=== PATIENT | female | born 1945 | race Caucasian/White ===

== ENCOUNTER → 2017-03-12 | Outpatient (CLI) | payer MEDICARE, MEDICAID ==
--- NOTE | 2017-03-12 11:10 | WOMENS IMAGING REPORT ---
EXAM DESCRIPTION: 3D SCREENING MAMMO BILAT COMPLETED DATE/TIME: 03/12/2017 10:32 am REASON FOR STUDY: ROUTINE SCREENING; Z12.31 Z12.31 ENCNTR SCREEN MAMMOGRAM FOR MALIGNANT NEOPLASM O F NATHALY COMPARISON: 2012 TECHNIQUE: Standard craniocaudal and mediolateral oblique views of each breast recorded using digita l acquisition and breast tomosynthesis. LIMITATIONS: None. FINDINGS: No masses, calcifications or architectural distortion. No areas of suspicion. Read with the assistance of CAD. .[facility] - R2 Cenova Version 1.3 .[facility] Imaging - R2 Cenova Version 1.3 .[facility] Imaging - R2 Cenova Version 2.4 .[facility] - R2 Cenova Version 2.4 .[facility] 234 BEDS AT THE [facility] - R2 Engine Service Repairer Version 9.2 IMPRESSION: NORMAL MAMMOGRAM. BIRADS 1. BREAST DENSITY: a. The breasts are almost entirely fatty. BIRAD: 1 NEGATIVE RECOMMENDATION: ROUTINE SCREENING COMMENT: The patient has been notified of the results by letter per SA requirements. Additional no tification policies are in place for contacting patient with suspicious or incomplete findings. Quality ID #[id number]: The [employer] recommends an annual screening mammogram for women aged 40 years or over. This facility utilizes a reminder system to ensure that all patients receive reminder letters, and/or direct phone calls for appointments. This includes reminders for routine scr eening mammograms, diagnostic mammograms, or other Breast Imaging Interventions when appropriate. Th is patient will be placed in the appropriate reminder system. The [employer] (ACR) has developed recommendations for screening MRI of the breast s in certain patient populations, to be used in conjunction with mammography. Breast MRI surveillanc e may be appropriate for women with more than 20% lifetime risk of developing breast cancer as deter mined by genetic testing, significant family history of the disease, or history of mantle radiation f or Hodgkins Disease. ACR Practice Guidelines 2008. DBT Technology DBT is a type of tomographic mammography. With conventional mammography, overlapping breast tissue ma y make lesions difficult to detect, even with good compression. DBT uses an x-ray tube that rotates a round the breast, taking images at different angles. These images are then combined to create thin sl ices of the breast that the radiologist can view as a 3D reconstruction. The [employer] unit can perform full-field digital mammograms (2D imaging); or DBT (3D imaging); or both, in a combination mode that quickly performs both the mammogram and the tomosynthesis scan while the breast is still compressed. PQRS 6045F: Fluoroscopic imaging is not utilized for breast tomosynthesis. TECHNICAL DOCUMENTATION: FINDING NUMBER: (1) ASSESSMENT: (1) JOB ID: [id number] [employer]- All Rights Reserved
== END ==
LOC: WI 10:09
PROVIDERS: ATTEND Physician Assistant
DX: Z12.31 Encounter for screening mammogram for malignant neoplasm of breast (principal)
CPT/HCPCS: 77063; G0202; 77067

== ENCOUNTER 2017-12-05 18:35 | Inpatient (IN) | payer MEDICARE, MEDICAID ==
--- NOTE | 2017-12-05 19:17 | ER Document Report ---
ED Medical Screen (RME) - General Chief Complaint: Altered Mental Status Stated Complaint: ALTERED STATE,CONFUSION Time Seen by Provider: 12/05/17 19:11 TRAVEL OUTSIDE OF THE [place] IN LAST 30 DAYS: No - HPI Notes: 12/05/17 19:17 On chronic antibiotic therapy for infected knee now having altered mental status and feeling "lousy" - Related Data Allergies/Adverse Reactions: Sulfa (Sulfonamide Antibiotics) Allergy (Verified 10/25/11 10:44) Past Medical History - Past Medical History Cardiac Medical History: Reports: Hx Hypercholesterolemia, Hx Hypertension Pulmonary Medical History: Reports: Hx Bronchitis Endocrine Medical History: Reports: Hx Diabetes Mellitus Type 2 Psychiatric Medical History: Reports: Hx Depression Review of Systems - Review of Systems Constitutional: Weakness Physical Exam - Vital signs Vitals: Temp Pulse Resp BP Pulse Ox 98.4 F 70 18 137/70 H 99 12/05/17 18:46 12/05/17 18:46 12/05/17 18:46 12/05/17 18:46 12/05/17 18:46 - Respiratory Respiratory status: No respiratory distress Chest status: Nontender Breath sounds: Normal Chest palpation: Normal Course - Vital Signs Vital signs: Temp Pulse Resp BP Pulse Ox 98.4 F 70 18 137/70 H 99 12/05/17 18:46 12/05/17 18:46 12/05/17 18:46 12/05/17 18:46 12/05/17 18:46
[2017-12-05] MEDS ORDERED: ONDANSETRON HCL INJ/PF 4 MG/2 ML SDV IV ONE (19:18)
[2017-12-05] MEDS ORDERED: NORMAL SALINE 1000 ML 1,000 ML IV ONE ×2 (19:18→22:05)
--- NOTE | 2017-12-05 20:21 | RADIOLOGY REPORT (SQ) ---
EXAM DESCRIPTION: CHEST 2 VIEWS COMPLETED DATE/TIME: 12/05/2017 8:13 pm REASON FOR STUDY: ams COMPARISON: 10/25/2011 EXAM PARAMETERS: NUMBER OF VIEWS: two views TECHNIQUE: Digital Frontal and Lateral radiographic views of the chest acquired. RADIATION DOSE: NA LIMITATIONS: none FINDINGS: LUNGS AND PLEURA: No opacities, masses or pneumothorax. No pleural effusion. MEDIASTINUM AND HILAR STRUCTURES: No masses or contour abnormalities. HEART AND VASCULAR STRUCTURES: Heart normal size. No evidence for failure. BONES: No acute findings. HARDWARE: None in the chest. OTHER: No other significant finding. IMPRESSION: NO ACUTE RADIOGRAPHIC FINDING IN THE CHEST. TECHNICAL DOCUMENTATION: JOB ID: [id number] [employer]- All Rights Reserved Reading location - IP/workstation name: [email or web address]
--- NOTE | 2017-12-05 20:23 | RADIOLOGY REPORT (SQ) ---
EXAM DESCRIPTION: CT HEAD WITHOUT COMPLETED DATE/TIME: 12/05/2017 8:13 pm REASON FOR STUDY: ams COMPARISON: None. TECHNIQUE: Axial images acquired through the brain without intravenous contrast. Images reviewed wi th bone, brain and subdural windows. Additional sagittal and coronal reconstructions were generated. Images stored on PACS. All CT scanners at this facility use dose modulation, iterative reconstruction, and/or weight based d osing when appropriate to reduce radiation dose to as low as reasonably achievable (ALARA). [facility]: Dose Right [facility]: CareDose [facility]: Dose Right [facility]: Teradose 4D [facility]: Gengo RADIATION DOSE: CT Rad equipment meets quality standard of care and radiation dose reduction techniq ues were employed. CTDIvol: 53.2 mGy. DLP: 1070 mGy-cm. mGy. LIMITATIONS: None. FINDINGS: VENTRICLES: Normal size and contour. CEREBRUM: No masses. No hemorrhage. No midline shift. No evidence for acute infarction. Normal gra y/white matter differentiation. No areas of low density in the white matter. CEREBELLUM: No masses. No hemorrhage. No alteration of density. No evidence for acute infarction. EXTRAAXIAL SPACES: No fluid collections. No masses. ORBITS AND GLOBE: No intra- or extraconal masses. Normal contour of globe without masses. CALVARIUM: No fracture. PARANASAL SINUSES: No fluid or mucosal thickening. SOFT TISSUES: No mass or hematoma. OTHER: No other significant finding. IMPRESSION: NORMAL BRAIN CT WITHOUT CONTRAST. EVIDENCE OF ACUTE STROKE: NO. COMMENT: Quality ID # [id number]: Final reports with documentation of one or more dose reduction techniques (e.g., Automated exposure control, adjustment of the mA and/or kV according to patient size, use of iterative reconstruction technique) TECHNICAL DOCUMENTATION: JOB ID: [id number] [employer]- All Rights Reserved Reading location - IP/workstation name: [email or web address]
--- NOTE | 2017-12-05 20:23 | ER Document Report ---
ED General <EVON WEBB - Last Filed: 12/05/17 22:21> - General Mode of Arrival: Ambulatory Information source: Patient, Relative TRAVEL OUTSIDE OF THE U.S. IN LAST 30 DAYS: No <DARLENE DE LEON - Last Filed: 12/10/17 22:02> - General Chief Complaint: Altered Mental Status Stated Complaint: ALTERED STATE,CONFUSION Time Seen by Provider: 12/05/17 19:11 Notes: Patient is a 71 year old female on Cefepime chronically for an infected left knee prosthesis with a history of diabetes type 2 and hypertension presents to the emergency department complaining of general malaise onset 3 days ago and altered mental status onset yesterday. Patient states she has been feeling lousy and states starting yesterday she has been confused. Patient states she has associated symptoms of nausea and decreased appetite. Daughter at bedside states she believes the patient has been drinking enough fluids but is unsure. Patient denies any fevers. Patient had a left total knee replacement on October 13, 2017, an hematoma washed out on October 24, 2017 and was started on Cefepime on October 26 2017. Patient's PCP is Dr. Morataya. Patient goes to [facility] in [place] in regards to her orthopedic surgery. (DARLENE DE LEON) - Related Data Allergies/Adverse Reactions: Sulfa (Sulfonamide Antibiotics) Allergy (Verified 12/05/17 19:20) Past Medical History - General Information source: Patient - Social History Smoking Status: Former Smoker Chew tobacco use (# tins/day): No Frequency of alcohol use: None Drug Abuse: None Family History: Reviewed & Not Pertinent Patient has suicidal ideation: No Patient has homicidal ideation: No - Past Medical History Cardiac Medical History: Reports: Hx Hypercholesterolemia, Hx Hypertension Pulmonary Medical History: Reports: Hx Bronchitis Endocrine Medical History: Reports: Hx Diabetes Mellitus Type 2 Psychiatric Medical History: Reports: Hx Depression <DARLENE DE LEON - Last Filed: 12/10/17 22:02> Review of Systems - Review of Systems Constitutional: See HPI, Malaise EENT: No symptoms reported Cardiovascular: No symptoms reported Respiratory: No symptoms reported Gastrointestinal: See HPI, Nausea, Poor appetite Genitourinary: No symptoms reported Female Genitourinary: No symptoms reported Musculoskeletal: No symptoms reported Skin: No symptoms reported Hematologic/Lymphatic: No symptoms reported Neurological/Psychological: See HPI, Confusion -: Yes All other systems reviewed and negative <MOISESDARLENE DRIVER - Last Filed: 12/10/17 22:02> Physical Exam - General General appearance: Appears well, Alert In distress: None - HEENT Head: Normocephalic, Atraumatic Eyes: Normal Conjunctiva: Normal Extraocular movements intact: Yes Pupils: PERRL Mucous membranes: Dry Neck: Normal. No: Carotid bruit - Respiratory Respiratory status: No respiratory distress Chest status: Nontender Breath sounds: Normal Chest palpation: Normal - Cardiovascular Rhythm: Regular Heart sounds: Normal auscultation - Abdominal Inspection: Obese Distension: No distension Bowel sounds: Normal Tenderness: Nontender Organomegaly: No organomegaly - Back Back: Normal - Extremities General upper extremity: Normal inspection General lower extremity: Normal inspection, Other - Support stocking BLE - Neurological Neuro grossly intact: Yes Cognition: Normal Orientation: AAOx4 Khai Coma Scale Eye Opening: Spontaneous [place] Coma Scale Verbal: Oriented Khai Coma Scale Motor: Obeys Commands [place] Coma Scale Total: 15 - Psychological Associated symptoms: Normal affect, Normal mood - Skin Skin Temperature: Warm Skin Moisture: Dry Skin Color: Normal <MOISESKARENPHONG - Last Filed: 12/10/17 22:02> - Vital signs Vitals: Temp Pulse Resp BP Pulse Ox 98.4 F 70 18 137/70 H 99 12/05/17 18:46 12/05/17 18:46 12/05/17 18:46 12/05/17 18:46 12/05/17 18:46 Course - Laboratory Result Diagrams: 12/05/17 20:30 12/05/17 20:30 - Diagnostic Test Radiology reviewed: Image reviewed, Reports reviewed - EKG Interpretation by Or EKG shows normal: Sinus rhythm, [place], Intervals, QRS Complexes, ST-T Waves Rate: Normal - 59 Rhythm: NSR - Consults Dr. Morataya Consulted provider: will see as inpatient <EVON WEBB - Last Filed: 12/05/17 22:21> - Laboratory Result Diagrams: 12/06/17 05:45 12/06/17 16:45 <MOISESDARLENE FRAUSTO - Last Filed: 12/10/17 22:02> - Vital Signs Vital signs: Temp Pulse Resp BP Pulse Ox 98.0 F 59 L 16 137/61 H 97 12/06/17 20:06 12/06/17 20:06 12/06/17 20:06 12/06/17 20:06 12/06/17 20:06 - Laboratory Laboratory results interpreted by me: 12/05/17 12/05/17 12/05/17 20:30 20:30 20:30 RBC 3.52 L Hgb 10.4 L Hct 30.5 L RDW 15.2 H Plt Count 113 L PT 15.6 H VBG pCO2 VBG HCO3 Carbon Dioxide 17 L Anion Gap 20 H BUN 66 H Creatinine 3.83 H Est GFR ( Amer) 14 L Est GFR (Non-Af Amer) 12 L Glucose 123 H Direct Bilirubin 0.5 H Urine Protein Urine Blood 12/05/17 12/05/17 20:30 20:40 RBC Hgb Hct RDW Plt Count PT VBG pCO2 32.7 L VBG HCO3 19.1 L Carbon Dioxide Anion Gap BUN Creatinine Est GFR ( Amer) Est GFR (Non-Af Amer) Glucose Direct Bilirubin Urine Protein 30 H Urine Blood MODERATE H Discharge - Discharge Admitting Provider: [facility] Admitted: Telemetry <EVON WEBB - Last Filed: 12/05/17 22:21> <DARLENE DE LEON - Last Filed: 12/10/17 22:02> - Discharge Clinical Impression: Dehydration Acute renal failure Qualifiers: Acute renal failure type: unspecified Qualified Code(s): N17.9 - Acute kidney failure, unspecified Infection of prosthetic left knee joint Qualifiers: Encounter type: initial encounter Qualified Code(s): T84.54XA - Infection and inflammatory reaction due to internal left knee prosthesis, initial encounter Condition: Stable Disposition: ADMITTED INPATIENT Scribe Attestation: 12/05/17 21:28 I personally performed the services described in the documentation, reviewed and edited the documentation which was dictated to the scribe in my presence, and it accurately records my words and actions. (EVON WEBB) Scribe Documentation - Scribe Written by Scribe:: Martine Dale, 12/05/2017 20:26 acting as scribe for :: Yehuda <DARLENE DE LEON - Last Filed: 12/10/17 22:02>
[2017-12-05 20:47] LABS: ABSOLUTE BASOPHILS # (AUTO) 0.1 10^3/uL (0.0-0.2); ABSOLUTE EOSINOPHILS # (AUTO) 0.2 10^3/uL (0.0-0.6); ABSOLUTE LYMPHOCYTES (AUTO) 1.3 10^3/uL (0.5-4.7); ABSOLUTE MONOCYTES (AUTO) 0.8 10^3/uL (0.1-1.4); ABSOLUTE NEUT (AUTO) 5.1 10^3/uL (1.7-8.2); BASOPHILS % (AUTO) 0.7 % (0-2); EOSINOPHILS % (AUTO) 2.1 % (0-6); HEMATOCRIT 30.5 % (36.0-47.0); HEMOGLOBIN 10.4 g/dL (12.0-15.5); LYMPHOCYTES % (AUTO) 17.4 % (13-45); MEAN CORPUSCULAR HEMOGLOBIN 29.7 pg (27.0-33.4); MEAN CORPUSCULAR HGB CONC 34.2 g/dL (32.0-36.0); MEAN CORPUSCULAR VOLUME 87 fl (80-97); MONOCYTES % (AUTO) 10.6 % (3-13); PLATELET COUNT 113 10^3/uL (150-450); RED BLOOD COUNT 3.52 10^6/uL (3.72-5.28); RED CELL DISTRIBUTION WIDTH 15.2 % (11.5-14.0); SEGMENTED NEUTROPHILS % (AUTO) 69.2 % (42-78); TOTAL CELLS COUNTED % (AUTO) 100 %; WHITE BLOOD COUNT 7.3 10^3/uL (4.0-10.5)
[2017-12-05 20:49] LABS: VENOUS BLOOD BASE EXCESS -5.1 mmol/L; VENOUS BLOOD HCO3 19.1 mmol/L (20-32); VENOUS BLOOD PCO2 32.7 mmHg (35-63); VENOUS BLOOD PH 7.38 (7.30-7.42)
[2017-12-05 20:51] LABS: INTERNATIONAL RATION (INR) 1.18; PROTHROMBIN TIME 15.6 SEC (11.4-15.4)
[2017-12-05 21:12] LABS: ALANINE AMINOTRANSFERASE 28 U/L (9-52); ALBUMIN 3.8 g/dL (3.5-5.0); ALKALINE PHOSPHATASE 78 U/L (38-126); ASPARTATE AMINO TRANSFERASE 20 U/L (14-36); BILIRUBIN,DIRECT 0.5 mg/dL (0.0-0.4); BILIRUBIN,TOTAL 0.5 mg/dL (0.2-1.3); BLOOD UREA NITROGEN 66 mg/dL (7-20); CALCIUM 9.9 mg/dL (8.4-10.2); GLUCOSE 123 mg/dL (75-110); TOTAL PROTEIN 7.2 g/dL (6.3-8.2)
[2017-12-05 21:17] LABS: CARBON DIOXIDE 17 mmol/L (22-30); CHLORIDE 103 mmol/L (98-107); SODIUM 140.2 mmol/L (137-145)
[2017-12-05 21:18] LABS: ANION GAP 20 (5-19)
[2017-12-05 21:18] LABS: APPEARANCE,URINE SLIGHTLY-CLOUDY; BILIRUBIN,URINE NEGATIVE (NEGATIVE); COLOR,URINE YELLOW; GLUCOSE, URINE NEGATIVE (NEGATIVE); KETONES,URINE NEGATIVE (NEGATIVE); LEUKOCYTE ESTERASE,URINE NEGATIVE (NEGATIVE); NITRITE,URINE NEGATIVE (NEGATIVE); PROTEIN,URINE 30 mg/dL (NEGATIVE); URINE SPECIFIC GRAVITY 1.009; UROBILINOGEN,URINE NEGATIVE mg/dL (<2.0)
[2017-12-05] MEDS ORDERED: NORMAL SALINE 1000 ML 1,000 ML IV PRN (22:16)
[2017-12-05] MEDS ORDERED: ACETAMINOPHEN 325 MG TABLET PO PRN (22:16)
[2017-12-05] MEDS ORDERED: OXYCODONE-ACETAMINOPHEN 5-325 MG TABLET PO PRN (22:16)
[2017-12-05] MEDS ORDERED: GLUCAGON,HUMAN RECOMB 1 MG INJ IM PRN (22:21)
[2017-12-05] MEDS ORDERED: DEXTROSE 40% GEL 15 GM TUBE PO PRN ×2 (22:21)
[2017-12-05] MEDS ORDERED: DEXTROSE 50%-WATER 25 GM/50 ML DISP.SYRIN IV PRN ×2 (22:21)
[2017-12-05] MEDS ORDERED: INSULIN LISPRO 100 UNIT/ML 3 ML VIAL SUBCUT PRN (22:21)
[2017-12-06] MEDS ORDERED: HEPARIN SOD (PORCINE) 5,000 UNIT/ML 1 ML SYRINGE SUBCUT SCH (06:00)
[2017-12-06] MEDS: LANSOPRAZOLE 15 MG TAB.RAP.DR PO SCH ×2 (06:03→16:56)
[2017-12-06 06:13] LABS: ALANINE AMINOTRANSFERASE 28 U/L (9-52); ALBUMIN 3.3 g/dL (3.5-5.0); ALKALINE PHOSPHATASE 64 U/L (38-126); ANION GAP 14 (5-19); ASPARTATE AMINO TRANSFERASE 20 U/L (14-36); BILIRUBIN,DIRECT 0.4 mg/dL (0.0-0.4); BILIRUBIN,TOTAL 0.4 mg/dL (0.2-1.3); BLOOD UREA NITROGEN 66 mg/dL (7-20); CARBON DIOXIDE 16 mmol/L (22-30); CHLORIDE 110 mmol/L (98-107); GLUCOSE 112 mg/dL (75-110); POTASSIUM 4.1 mmol/L (3.6-5.0); SODIUM 140.4 mmol/L (137-145); TOTAL PROTEIN 6.4 g/dL (6.3-8.2)
[2017-12-06 06:55] LABS: ABSOLUTE EOSINOPHILS # (AUTO) 0.1 10^3/uL (0.0-0.6); ABSOLUTE MONOCYTES (AUTO) 0.6 10^3/uL (0.1-1.4); ABSOLUTE NEUT (AUTO) 3.5 10^3/uL (1.7-8.2); BASOPHILS % (AUTO) 0.9 % (0-2); EOSINOPHILS % (AUTO) 2.6 % (0-6); HEMATOCRIT 27.7 % (36.0-47.0); HEMOGLOBIN 9.5 g/dL (12.0-15.5); LYMPHOCYTES % (AUTO) 19.3 % (13-45); MEAN CORPUSCULAR HEMOGLOBIN 29.7 pg (27.0-33.4); MEAN CORPUSCULAR HGB CONC 34.4 g/dL (32.0-36.0); MEAN CORPUSCULAR VOLUME 86 fl (80-97); MONOCYTES % (AUTO) 11.3 % (3-13); PLATELET COUNT 78 10^3/uL (150-450); RED BLOOD COUNT 3.21 10^6/uL (3.72-5.28); RED CELL DISTRIBUTION WIDTH 14.7 % (11.5-14.0); SEGMENTED NEUTROPHILS % (AUTO) 65.9 % (42-78); TOTAL CELLS COUNTED % (AUTO) 100 %; WHITE BLOOD COUNT 5.4 10^3/uL (4.0-10.5)
--- NOTE | 2017-12-06 07:26 | EKG REPORT ---
SEVERITY:- NORMAL ECG - SINUS RHYTHM : Confirmed by: Jose English MD 06-Dec-2017 07:26:15
[2017-12-06] MEDS ORDERED: NORMAL SALINE 1000 ML 1,000 ML IV PRN (08:54)
--- NOTE | 2017-12-06 09:44 | PDOC H&P ---
History of Present Illness Admission Date/PCP: 12/05/17 22:30 YESI HARGROVE MD Patient complains of: Weakness and altered mental status History of Present Illness: JENIFER JARA is a 71 year old female This is a 71-year-old female have a recently a left knee arthroplasty was done in [facility] on October 13 And then after patients to have a postop fever and patient underwent for the reopen the prostatic device and sign fluid was sent to the culture and a culture was not very conclusive patients was empirically treated initially with a Cefazolin and put on a vancomycinFor 2 weeks According to the note from the ortho The Gram stain was not conclusive and stop the vancomycin on 10/30 And the start the patient on the cefepime to cover the Pseudomonas and gram-negative and the patient's finished for almost 2 weeks therapy Patients came because of not feeling well not eating well and according to the daughters patient's little confused In the emergency department patient CT head was negative but patients follow acute renal failure Patient's kidney function was completely normal Patient when I saw in the floor patient is alert awake oriented but more weaker compared to the see in office before but denied any chest pain denied any shortness of the breath Patient's denied any abdominal pain but patient's appetite is poor Patient have a PICC line was placed Past Medical History Cardiac Medical History: Reports: Hyperlipidema, Hypertension Pulmonary Medical History: Reports: Bronchitis Endocrine Medical History: Reports: Diabetes Mellitus Type 2 GI Medical History: Reports: Gastroesophageal Reflux Disease Psychiatric Medical History: Reports: Depression Past Surgical History Past Surgical History: Reports: Orthopedic Surgery Social History Smoking Status: Former Smoker Cigarettes Packs Per Day: 1 Number of Years Smokin Last Time Smoked: 1989 Frequency of Alcohol Use: None Hx Recreational Drug Use: No Drugs: None Hx Prescription Drug Abuse: No Family History Family History: Reviewed & Not Pertinent Parental Family History Reviewed: Yes Children Family History Reviewed: Yes Sibling(s) Family History Reviewed.: Yes Medication/Allergy Home Medications: Hydrochlorothiazide [Hydrodiuril 25 mg Tablet] 25 mg PO QAM 10/25/11 Metformin HCl [Glucophage] 1,000 mg PO BID 10/25/11 Simvastatin [Zocor 10 mg Tablet] 5 mg PO QHS 10/25/11 Acetaminophen [Tylenol 325 mg Tablet] 650 mg PO Q8HP PRN 12/06/17 Cefepime HCl [Maxipime] 2 gm IJ 12/06/17 Escitalopram Oxalate [Lexapro 10 mg Tablet] 20 mg PO DAILY 12/06/17 Glimepiride [Amaryl 1 mg Tablet] 1 mg PO BID 12/06/17 Levothyroxine Sodium [Synthroid 0.112 mg Tablet] 0.112 mg PO Q6AM 12/06/17 Losartan Potassium [Cozaar 50 mg Tablet] 50 mg PO DAILY 12/06/17 Sennosides/Docusate Sodium [Docusate Sodium-Senna Tablet] 2 each PO BID Sitagliptin Phosphate [Januvia] 100 mg PO DAILY 12/06/17 Tramadol HCl [Ultram 50 mg Tablet] 50 mg PO Q6HP PRN MDD take with tylenol 12/06 Allergies/Adverse Reactions: Sulfa (Sulfonamide Antibiotics) Allergy (Verified 12/05/17 19:20) Review of Systems Constitutional: PRESENT: anorexia, fatigue, weakness. ABSENT: chills, fever(s) , headache(s), weight gain, weight loss Eyes: ABSENT: visual disturbances Ears: ABSENT: hearing changes Cardiovascular: ABSENT: chest pain, dyspnea on exertion, edema, orthropnea, palpitations Respiratory: ABSENT: cough, hemoptysis Gastrointestinal: ABSENT: abdominal pain, constipation, diarrhea, hematemesis, hematochezia, nausea, vomiting Genitourinary: ABSENT: dysuria, hematuria Musculoskeletal: ABSENT: joint swelling Integumentary: ABSENT: rash, wounds Neurological: PRESENT: confusion. ABSENT: abnormal gait, abnormal speech, dizziness, focal weakness, syncope Psychiatric: ABSENT: anxiety, depression, homidical ideation, suicidal ideation Endocrine: ABSENT: cold intolerance, heat intolerance, menstrual abnormalities, polydipsia, polyuria Hematologic/Lymphatic: ABSENT: easy bleeding, easy bruising, lymphadenopathy Physical Exam Vital Signs: Temp Pulse Resp BP Pulse Ox 97.8 F 56 L 17 128/65 H 97 12/06/17 03:15 12/06/17 03:15 12/06/17 03:15 12/06/17 03:15 12/06/17 03:15 Intake & Output 12/05/17 12/06/17 12/07/17 06:59 06:59 06:59 Intake Total 300 Balance 300 Weight 96.8 kg General appearance: PRESENT: no acute distress, well-developed, well-nourished Head exam: PRESENT: atraumatic, normocephalic Eye exam: PRESENT: conjunctiva pink, EOMI, PERRLA. ABSENT: scleral icterus Ear exam: PRESENT: normal external ear exam Mouth exam: PRESENT: moist, tongue midline Neck exam: PRESENT: full ROM. ABSENT: carotid bruit, JVD, lymphadenopathy, thyromegaly Respiratory exam: PRESENT: clear to auscultation radha Cardiovascular exam: PRESENT: RRR. ABSENT: diastolic murmur, rubs, systolic murmur Pulses: PRESENT: normal dorsalis pedis pul, +2 pedal pulses bilateral Vascular exam: PRESENT: normal capillary refill GI/Abdominal exam: PRESENT: normal bowel sounds, soft. ABSENT: distended, guarding, mass, organolmegaly, rebound, tenderness Rectal exam: PRESENT: deferred Extremities exam: ABSENT: pedal edema Additional comments: Left knee the incision is no redness no swelling Neurological exam: PRESENT: alert, awake, oriented to person, oriented to place , oriented to time, oriented to situation, CN II-XII grossly intact. ABSENT: motor sensory deficit Psychiatric exam: PRESENT: appropriate affect, normal mood. ABSENT: homicidal ideation, suicidal ideation Skin exam: PRESENT: dry, intact, warm. ABSENT: cyanosis, rash Results Laboratory Results: 12/06/17 05:45 12/06/17 05:45 12/06/17 12/06/17 05:45 05:45 WBC 5.4 RBC 3.21 L Hgb 9.5 L Hct 27.7 L MCV 86 MCH 29.7 MCHC 34.4 RDW 14.7 H Plt Count 78 L Seg Neutrophils % 65.9 Lymphocytes % 19.3 Monocytes % 11.3 Eosinophils % 2.6 Basophils % 0.9 Absolute Neutrophils 3.5 Absolute Lymphocytes 1.0 Absolute Monocytes 0.6 Absolute Eosinophils 0.1 Absolute Basophils 0.0 Sodium 140.4 Potassium 4.1 Chloride 110 H Carbon Dioxide 16 L Anion Gap 14 BUN 66 H Creatinine 3.77 H Est GFR ( Amer) 14 L Est GFR (Non-Af Amer) 12 L Glucose 112 H Calcium 9.0 Total Bilirubin 0.4 AST 20 ALT 28 Alkaline Phosphatase 64 Total Protein 6.4 Albumin 3.3 L Impressions: Chest X-Ray 12/05/17 19:17 IMPRESSION: NO ACUTE RADIOGRAPHIC FINDING IN THE CHEST. Head CT 12/05/17 19:17 IMPRESSION: NORMAL BRAIN CT WITHOUT CONTRAST. EVIDENCE OF ACUTE STROKE: NO. Assessment & Plan - Diagnosis (1) Acute renal failure Qualifiers: Acute renal failure type: unspecified Qualified Code(s): N17.9 - Acute kidney failure, unspecified Is this a current diagnosis for this admission?: Yes Plan: Most likely a vancomycinWill continues IV fluid get the ultrasound for the kidney and a consult the nephrology for further evaluations (2) Altered mental status Qualifiers: Altered mental status type: unspecified Qualified Code(s): R41.82 - Altered mental status, unspecified Is this a current diagnosis for this admission?: Yes Plan: Is likely a metabolic due to the renal failure and recent infections currently looks pretty stable to mePatient is feeling better after IV fluidHistory check the blood culture urine culture (3) Hypertension Qualifiers: Hypertension type: essential hypertension Qualified Code(s): I10 - Essential (primary) hypertension Is this a current diagnosis for this admission?: Yes Plan: Currently hold the lisinopril (4) Type 2 diabetes mellitus 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 Is this a current diagnosis for this admission?: Yes Plan: Currently hold the Metformin continues to sliding scale (5) Dehydration Is this a current diagnosis for this admission?: Yes Plan: Continues IV fluid (6) Infection of prosthetic left knee joint Qualifiers: Encounter type: initial encounter Qualified Code(s): T84.54XA - Infection and inflammatory reaction due to internal left knee prosthesis, initial encounter Is this a current diagnosis for this admission?: Yes Plan: Currently looks more clear will discuss with the patient's ortho - Time Time Spent: 30 to 50 Minutes Medications reviewed and adjusted accordingly: Yes Anticipated discharge: Home - Inpatient Certification Medical Necessity: Need Close Monitoring Due to Risk of Patient Decompensation, Need For IV Fluids Post Hospital Care: D/C Survey Compiler Documentation - Plan Summary Plan Summary: See other MD orders
--- NOTE | 2017-12-06 10:44 | RADIOLOGY REPORT (SQ) ---
EXAM DESCRIPTION: CT ABD/PELVIS NO ORAL OR IV COMPLETED DATE/TIME: 12/06/2017 8:52 am REASON FOR STUDY: renal failure COMPARISON: None. TECHNIQUE: CT scan of the abdomen and pelvis performed without intravenous or oral contrast. Images reviewed with lung, soft tissue, and bone windows. Reconstructed coronal and sagittal MPR images revi ewed. All images stored on PACS. All CT scanners at this facility use dose modulation, iterative reconstruction, and/or weight based d osing when appropriate to reduce radiation dose to as low as reasonably achievable (ALARA). [facility]: Dose Right [facility]: CareDose [facility]: Dose Right [facility]: Teradose 4D [facility]: [employer] RADIATION DOSE: mGy. LIMITATIONS: Patient motion. Positioning. FINDINGS: LOWER CHEST: Hiatal hernia. NON-CONTRASTED LIVER, SPLEEN, ADRENALS: Bilateral adrenal thickening. PANCREAS: No masses. No peripancreatic inflammatory changes. GALLBLADDER: Gallstones. No inflammatory changes to suggest cholecystitis. RIGHT KIDNEY AND URETER: No suspicious masses. Assessment limited by lack of IV contrast. No signif icant calcifications. No hydronephrosis or hydroureter. LEFT KIDNEY AND URETER: No suspicious masses. Assessment limited by lack of IV contrast. No signifi cant calcifications. No hydronephrosis or hydroureter. AORTA AND RETROPERITONEUM: No aneurysm. No retroperitoneal masses or adenopathy. BOWEL AND PERITONEAL CAVITY: No obvious masses or inflammatory changes. No free fluid. APPENDIX: Normal. PELVIS, BLADDER, AND ABDOMINAL WALL:Status post anterior abdominal wall hernia repair. BONES: No acute findings. OTHER: No other significant finding. IMPRESSION: Cholelithiasis. No acute findings. COMMENT: Quality ID # [id number]: Final reports with documentation of one or more dose reduction techniques (e.g., Automated exposure control, adjustment of the mA and/or kV according to patient size, use of iterative reconstruction technique) TECHNICAL DOCUMENTATION: JOB ID: [id number] [employer]- All Rights Reserved Reading location - IP/workstation name: [email or web address]
[2017-12-06] MEDS: DOCUSATE SODIUM 100 MG CAPSULE PO SCH ×2 (10:50→18:51)
[2017-12-06] MEDS: ONDANSETRON HCL INJ/PF 4 MG/2 ML SDV IV PRN ×3 (10:50→22:56)
[2017-12-06 17:12] LABS: CALCIUM 9.1 mg/dL (8.4-10.2)
[2017-12-06 17:13] LABS: BLOOD UREA NITROGEN 67 mg/dL (7-20); CARBON DIOXIDE 14 mmol/L (22-30); GLUCOSE 93 mg/dL (75-110); POTASSIUM 4.3 mmol/L (3.6-5.0)
[2017-12-06 17:22] LABS: ANION GAP 20 (5-19); CHLORIDE 109 mmol/L (98-107); SODIUM 143.2 mmol/L (137-145)
[2017-12-06] MEDS ORDERED: SENNOSIDES/DOCUSATE 8.6-50 MG 1 EACH TABLET PO SCH (18:00)
--- NOTE | 2017-12-06 19:53 | PDOC CONSULTATION ---
Consultation Consult Date: 12/06/17 Attending physician:: YESI HARGROVE Consult reason:: I was asked to see the patient by Dr. Hargrove because of acute worsening kidney function. History of Present Illness Admission Date/PCP: 12/05/17 22:30 YESI HARGROVE MD History of Present Illness: JENIFER JARA is a 71 year old female with history of hypertension, hyperlipidemia, diabetes mellitus type 2 who just underwent left knee arthroplasty at [facility] on October 02, [id number] with pulse of complication. Presumably they thought she has hematoma on the left knee and it could have been infected so they did incision and drainage on October 27. Patient was admitted on October 26 and was started on IV antibiotics initially was placed on IV vancomycin and cefazolin. The IV vancomycin was just given from admission until October 30 with a vancomycin trough level on the September. The cultures were not conclusive so the vancomycin was stopped and the patient was switch over IV cefepime to cover Pseudomonas. According to the daughter the patient was started on IV cefepime immediately on until yesterday at the last dose. Daughter said that her infectious disease doctor, Dr. Ward, called them and instructed them to stop the IV cefepime. Yesterday the daughter brought the patient to the emergency room because the patient has been feeling sick with nausea, no appetite, feeling tired, sleeping all the time, has episodes of confusion and unable to say what she wants to say correctly. Daughter said that the mental status changes was especially more pronounced and was worsening since yesterday. Daughter describes her mom is losing her thoughts. Daughter said that this is not her mother usually. Patient has not been eating much although she tries to drink some fluids. Patient herself denies any chest pains no shortness of breath. Patient is incontinent but according to the daughter she noticed that there she has not been needing to have diaper changes as frequent as before so possibility of decreased urine output. On admission yesterday the patient was found to have a BUN of 66 and creatinine 3.83 with estimated GFR of throughout. Today the patient has a BUN of 67 creatinine 4.23 and GFR of 10. On December 03 she has a BUN of 55 creatinine of 2.57 with estimated GFR of 18. On November 26 she has a BUN of 30 and creatinine of 1.17 with estimated GFR 46. On November 12 she has a baseline BUN of 21 and creatinine of 0.79 with estimated GFR greater than 60. Records from [facility] showed that the patient did not have any much problem with her kidney function while she was there. All the patient's potassium is within normal limits she is starting to become significantly acidotic with bicarbonate yesterday of 16 and today it is 14. Past Medical History Cardiac Medical History: Reports: Hyperlipidemia, Hypertension-primary Pulmonary Medical History: Reports: Bronchitis Endocrine Medical History: Reports: Diabetes Mellitus Type 2 GI Medical History: Reports: Gastroesophageal Reflux Disease Psychiatric Medical History: Reports: Depression Past Surgical History Past Surgical History: Reports: Orthopedic Surgery - Left total knee arthroplasty October 13, 2017 at [facility]. Social History Information Source: Relative Smoking Status: Former Smoker Cigarettes Packs Per Day: 1 Number of Years Smokin Last Time Smoked: 1989 Frequency of Alcohol Use: None Hx Recreational Drug Use: No Drugs: None Hx Prescription Drug Abuse: No Family History Family History: Other - Alzheimer's dementia on patient's mother and sister; dementia on her father Parental Family History Reviewed: Yes Children Family History Reviewed: Unknown Sibling(s) Family History Reviewed.: Yes Medication/Allergy Home Medications: Hydrochlorothiazide [Hydrodiuril 25 mg Tablet] 25 mg PO QAM 10/25/11 Metformin HCl [Glucophage] 1,000 mg PO BID 10/25/11 Simvastatin [Zocor 10 mg Tablet] 5 mg PO QHS 10/25/11 Acetaminophen [Tylenol 325 mg Tablet] 650 mg PO Q8HP PRN 12/06/17 Cefepime HCl [Maxipime] 2 gm IJ 12/06/17 Escitalopram Oxalate [Lexapro 10 mg Tablet] 20 mg PO DAILY 12/06/17 Glimepiride [Amaryl 1 mg Tablet] 1 mg PO BID 12/06/17 Levothyroxine Sodium [Synthroid 0.112 mg Tablet] 0.112 mg PO Q6AM 12/06/17 Losartan Potassium [Cozaar 50 mg Tablet] 50 mg PO DAILY 12/06/17 Sennosides/Docusate Sodium [Docusate Sodium-Senna Tablet] 2 each PO BID Sitagliptin Phosphate [Januvia] 100 mg PO DAILY 12/06/17 Tramadol HCl [Ultram 50 mg Tablet] 50 mg PO Q6HP PRN MDD take with tylenol 12/06 Allergies/Adverse Reactions: Sulfa (Sulfonamide Antibiotics) Allergy (Verified 12/05/17 19:20) Review of Systems All systems: reviewed and no additional remarkable complaints except as stated Review of Systems: Constitutional: [ABSENT: chills, fever(s), headache(s), weight gain, weight loss ; admits fatigue, tiredness, increased sleepiness, loss of appetite] Eyes: [ABSENT: visual disturbances] Ears:[ ABSENT: hearing changes] Cardiovascular: [ABSENT: chest pain, dyspnea on exertion, edema, orthropnea, palpitations] Respiratory: [ABSENT: cough, dyspnea, hemoptysis] Gastrointestinal: [ABSENT: abdominal pain, constipation, diarrhea, hematemesis, hematochezia, vomiting; admits nausea] Genitourinary: [ABSENT: dysuria, hematuria; admits incontinence and possibly decreased urine output] Musculoskeletal: [ABSENT: joint swelling] Integumentary:[ ABSENT: rash, wounds] Neurological: [ABSENT: abnormal gait, dizziness, focal weakness, numbness, syncope; admits confusion, inability to verbalize what she wants to say, occasional tremors] Psychiatric: [ABSENT: anxiety, depression] Endocrine:[ ABSENT: cold intolerance, heat intolerance, polydipsia, polyuria] Hematologic/Lymphatic: [ABSENT: easy bleeding, easy bruising, lymphadenopathy] Physical Exam Vital Signs: Temp Pulse Resp BP Pulse Ox 98.3 F 52 L 13 141/67 H 100 12/06/17 15:32 12/06/17 15:32 12/06/17 15:32 12/06/17 15:32 12/06/17 15:32 Intake & Output 12/05/17 12/06/17 12/07/17 06:59 06:59 06:59 Intake Total 300 1250 Balance 300 1250 Weight 96.8 kg Exam: General appearance: no acute distress, cooperative, well-developed, well- nourished Head exam: PRESENT: atraumatic, normocephalic Eye exam: PRESENT: Conjunctiva pale, EOMI, PERRLA. ABSENT: conjunctival injection, scleral icterus Mouth exam: PRESENT: moist, neck supple, tongue midline Neck exam: PRESENT: full ROM. ABSENT: carotid bruit, JVD, lymphadenopathy, thyromegaly Respiratory exam: PRESENT: clear to auscultation bilaterally. ABSENT: rales, rhonchi, stridor, wheezes Cardiovascular exam: PRESENT: RRR, +S1, +S2. ABSENT: systolic murmur Pulses: PRESENT: normal radial pulses, normal dorsalis pedis pulses GI/Abdominal exam: PRESENT: normal bowel sounds, soft. ABSENT: guarding, mass, tenderness Rectal exam: deferred Extremities exam: PRESENT: full ROM. ABSENT: calf tenderness, pedal edema Musculoskeletal: PRESENT: full ROM. ABSENT: deformity Neurological exam: PRESENT: alert, Awake, Oriented to person, Oriented to place , Oriented to time, reflexes normal, CN II-XII grossly intact. ABSENT: motor sensory deficit, asterixis Psychiatric exam: PRESENT: appropriate affect, normal mood. ABSENT: homicidal ideation, suicidal ideation Skin exam: PRESENT: intact, dry, warm. ABSENT: rash Results Laboratory Results: 12/06/17 05:45 12/06/17 16:45 12/06/17 12/06/17 12/06/17 05:45 05:45 11:00 WBC 5.4 RBC 3.21 L Hgb 9.5 L Hct 27.7 L MCV 86 MCH 29.7 MCHC 34.4 RDW 14.7 H Plt Count 78 L Seg Neutrophils % 65.9 Lymphocytes % 19.3 Monocytes % 11.3 Eosinophils % 2.6 Basophils % 0.9 Absolute Neutrophils 3.5 Absolute Lymphocytes 1.0 Absolute Monocytes 0.6 Absolute Eosinophils 0.1 Absolute Basophils 0.0 Sodium 140.4 Potassium 4.1 Chloride 110 H Carbon Dioxide 16 L Anion Gap 14 BUN 66 H Creatinine 3.77 H Est GFR ( Amer) 14 L Est GFR (Non-Af Amer) 12 L Glucose 112 H Lactic Acid 0.6 L Calcium 9.0 Total Bilirubin 0.4 AST 20 ALT 28 Alkaline Phosphatase 64 Ammonia Total Protein 6.4 Albumin 3.3 L 12/06/17 12/06/17 11:00 16:45 WBC RBC Hgb Hct MCV MCH MCHC RDW Plt Count Seg Neutrophils % Lymphocytes % Monocytes % Eosinophils % Basophils % Absolute Neutrophils Absolute Lymphocytes Absolute Monocytes Absolute Eosinophils Absolute Basophils Sodium 143.2 Potassium 4.3 Chloride 109 H Carbon Dioxide 14 L Anion Gap 20 H BUN 67 H Creatinine 4.23 H Est GFR ( Amer) 13 L Est GFR (Non-Af Amer) 10 L Glucose 93 Lactic Acid Calcium 9.1 Total Bilirubin AST ALT Alkaline Phosphatase Ammonia < 8.7 L Total Protein Albumin Impressions: Chest X-Ray 12/05/17 19:17 IMPRESSION: NO ACUTE RADIOGRAPHIC FINDING IN THE CHEST. Head CT 12/05/17 19:17 IMPRESSION: NORMAL BRAIN CT WITHOUT CONTRAST. EVIDENCE OF ACUTE STROKE: NO. Abdomen/Pelvis CT 12/06/17 00:00 IMPRESSION: Cholelithiasis. No acute findings. Assessment & Plan - Diagnosis (1) Uremia Is this a current diagnosis for this admission?: Yes Plan: Patient symptoms is consistent with uremia. I think she needs to have acute renal replacement therapy. I explained to the patient and her daughter that this is what she would need in the form of acute hemodialysis. Discussed with them the benefits and risks. Unfortunately we cannot provide any dialysis in the hospital currently. We only have one dialysis nurse and leave rehab so many dialysis patients that he cannot accommodate any further dialysis patient. I discussed with the patient and her daughter that we need to transfer the patient as soon as possible. They agreed to proceed. I then called Dr. Hargrove and ask discussed my assessment and recommendations. Dr. Hargrove will arrange transfer from here. (2) Acute kidney injury Is this a current diagnosis for this admission?: Yes Plan: The patient is only have very minimal trace proteinuria with trace microhematuria. The most possible cause of the patient's acute kidney injury is possibly acute interstitial nephritis secondary to IV cefepime since there is no other obvious precipitating cause. There is really no reason for acute tubular necrosis and I doubt any acute glomerulonephritis. (3) Acute interstitial nephritis Is this a current diagnosis for this admission?: Yes (4) Altered mental status Qualifiers: Altered mental status type: unspecified Qualified Code(s): R41.82 - Altered mental status, unspecified Is this a current diagnosis for this admission?: Yes Plan: This is due to uremia. (5) Metabolic acidosis Is this a current diagnosis for this admission?: Yes Plan: Due to worsening acute kidney injury requiring dialysis treatment as soon as possible. (6) Anemia Is this a current diagnosis for this admission?: Yes (7) Hypertension Qualifiers: Hypertension type: essential hypertension Qualified Code(s): I10 - Essential (primary) hypertension Is this a current diagnosis for this admission?: Yes (8) Infection of prosthetic left knee joint Qualifiers: Encounter type: initial encounter Qualified Code(s): T84.54XA - Infection and inflammatory reaction due to internal left knee prosthesis, initial encounter Is this a current diagnosis for this admission?: Yes Plan: Treated with IV cefepime for almost 6 weeks from October 26 - December 05. Cultures has been negative though. (9) Type 2 diabetes mellitus Qualifiers: Diabetes mellitus intermediate project manager insulin use: with intermediate project manager use Is this a current diagnosis for this admission?: Yes - Notes Notes: Thank you very much for this consultation. Discussed with the patient, her daughter and Dr. Hargrove. Transferred to another facility who can provide acute hemodialysis treatment as soon as possible will be arrange and everybody is agreeable to it. - Time Time Spent: Greater than 70 Minutes
--- NOTE | 2017-12-06 20:09 | DISCHARGE SUMMARY E ---
Discharge Summary NAME: JENIFER JARA : 1945 AGE: 71Y ADMITTED: 12/05/2017 DISCHARGED: 12/06/2017 ADMITTING DIAGNOSES: 1. Acute renal failure, due to medication-related nephritis. 2. Type 2 diabetes mellitus. 3. Hypertension. 4. Hyperlipidemia. 5. Left knee arthroplasty, status post complicated with infections. SUPERVISOR PUBLIC MESSAGE SERVICE: Surendra Marti MD, banbury operator. PROCEDURES: None. LABORATORY DATA: Patient's current BUN is 67, creatinine is 4.23. Sodium is 143, potassium is 4.3, CO2 is 14. Patient's lab shows WBCs 5.4, hemoglobin is 9.5, platelets are 78,000. INR is 1.18. PHYSICAL EXAMINATION: VITAL SIGNS: Blood pressure was 140/67, temperature is 98.3, pulse was 64, respirations 13, O2 sat 100% on room air. GENERAL: Patient is alert, awake. She is a little confused. HEAD AND NECK: Normocephalic. LANA. LUNGS: There is no wheezing. HEART: S1, S2 are present. ABDOMEN: Soft. Bowel sounds present. EXTREMITIES: No edema. NEUROLOGIC: Moves all 4 extremities, but confused. HOSPITAL COURSE: This is a 71-year-old female who had a left knee arthroplasty done on October 13 at [facility], and patient, after a couple of days, developed a postop fever of 101. Patient was taken to the OR again. Drained synovial fluid, and debridement. The patient was empirically put on cefazolin and vancomycin from 10/14 to 10/30, as per the record checked. Patient's cultures grew questionable gram-negative organisms, not sure, per the records. Patient's vancomycin was stopped, and then patient was started on cefepime 1 gram IV twice a day for almost more than 2 weeks. Patient's BUN and creatinine were completely normal before the procedures. Since last week, patient's creatinine went up to 2.57, and patient started developing more confusion. Patient had nausea, vomiting, unable to eat or drink. Patient came to the emergency department yesterday, and creatinine was 3.37 and BUN was 66. Patient was initially admitted and the hospitalist started him on IV fluid. Nephrology was consulted. Patient's BUN and creatinine were not improving with the IV fluid, and the patient's CO2 level was going up to 14. The patient was more confused, with nausea and vomiting more, consistent with uremic symptoms. Patient had a CT of the abdomen and pelvis done, which had no acute finding. CT of the head had no acute finding. Patient's lactic acid with the sepsis was all normal. At this point, Nephrology suggested the patient started developing more uremic symptoms, and definitely needed dialysis. The [facility] does not have any dialysis availability at this point. At this point, the patient was transferred to the other center where the dialysis is available. Discussed with the patient and the family, who agreed, and the patient was transferred to the [facility]. Patient otherwise currently is stable and able to be transferred at this point. More than 30 minutes spent examining the patient. DICTATING PHYSICIAN: YESI HARGROVE M.D. [id number] 1944 [facility]#: [id number] 1938 ID: [id number] JOB#: [id number] ACCT: [id number] cc:YESI HARGROVE M.D. >
[2017-12-06] MEDS ORDERED: DEXTROSE 5%-WATER 1000 ML 1,000 ML with SODIUM BICARBONATE 150 MEQ IV PRN ×2 (21:30)
[2017-12-06] MEDS ORDERED: SIMVASTATIN 10 MG TABLET PO SCH (22:00)
[2017-12-06 22:14] VITALS: BP 137/61
[2017-12-07] MEDS ORDERED: LEVOTHYROXINE SODIUM 0.112 MG TABLET PO SCH (06:00)
== END 2017-12-06 23:00 | disposition short-term general hospital (02) | DRG 683 ==
LOC: ER 18:35 → EH 22:30 → 4S 12-06 00:19
PROVIDERS: ADMIT Family Medicine; ATTEND Family Medicine
DX: N17.9 Acute kidney failure, unspecified (principal); E87.2 Acidosis; T84.54XA Infection and inflammatory reaction due to internal left knee prosthesis, initial encounter; N10 Acute pyelonephritis; T50.905A Adverse effect of unspecified drugs, medicaments and biological substances, initial encounter; E11.9 Type 2 diabetes mellitus without complications; I10 Essential (primary) hypertension; E78.00 Pure hypercholesterolemia, unspecified; K21.9 Gastro-esophageal reflux disease without esophagitis; F32.9 Major depressive disorder, single episode, unspecified; D64.9 Anemia, unspecified; E86.0 Dehydration; Z96.652 Presence of left artificial knee joint; Z87.891 Personal history of nicotine dependence; Z79.4 Long term (current) use of insulin; Z79.899 Other long term (current) drug therapy; Z88.2 Allergy status to sulfonamides
CPT/HCPCS: 36415; 70450; 71046; 74176; 80048; 80053; 81001; 82140; 82803; 82962; 83605; 85025; 85610; 85652; 86140; 87040; 87086; 93005; 93010; 96361; 96374; 99285; G8978-GP; G8979-GP; J2405; J3490; J7030; J7060

== ENCOUNTER → 2018-01-21 | Outpatient (CLI) | payer MEDICARE, MEDICAID ==
[2018-01-21 16:22] LABS: ANION GAP 11 (5-19); BLOOD UREA NITROGEN 25 mg/dL (7-20); CALCIUM 10.2 mg/dL (8.4-10.2); CARBON DIOXIDE 30 mmol/L (22-30); CHLORIDE 103 mmol/L (98-107); GLUCOSE 123 mg/dL (75-110); POTASSIUM 4.6 mmol/L (3.6-5.0); SODIUM 144.3 mmol/L (137-145)
== END ==
LOC: OD 15:04
PROVIDERS: ATTEND Orthopaedic Surgery
DX: Z01.812 Encounter for preprocedural laboratory examination (principal); Z01.818 Encounter for other preprocedural examination
CPT/HCPCS: 36415; 80048

== ENCOUNTER → 2018-01-25 | Outpatient (CLI) | payer MEDICARE, MEDICAID ==
[2018-01-25 13:33] LABS: APPEARANCE,URINE CLEAR; BILIRUBIN,URINE NEGATIVE (NEGATIVE); COLOR,URINE YELLOW; GLUCOSE, URINE NEGATIVE (NEGATIVE); KETONES,URINE NEGATIVE (NEGATIVE); LEUKOCYTE ESTERASE,URINE SMALL (NEGATIVE); NITRITE,URINE NEGATIVE (NEGATIVE); PROTEIN,URINE NEGATIVE (NEGATIVE); URINE SPECIFIC GRAVITY 1.012; UROBILINOGEN,URINE NEGATIVE mg/dL (<2.0)
[2018-01-25 13:35] LABS: ABSOLUTE EOSINOPHILS # (AUTO) 0.1 10^3/uL (0.0-0.6); ABSOLUTE LYMPHOCYTES (AUTO) 2.2 10^3/uL (0.5-4.7); ABSOLUTE MONOCYTES (AUTO) 0.4 10^3/uL (0.1-1.4); ABSOLUTE NEUT (AUTO) 4.8 10^3/uL (1.7-8.2); BASOPHILS % (AUTO) 0.7 % (0-2); EOSINOPHILS % (AUTO) 1.5 % (0-6); HEMOGLOBIN 11.1 g/dL (12.0-15.5); LYMPHOCYTES % (AUTO) 29.2 % (13-45); MEAN CORPUSCULAR HEMOGLOBIN 30.5 pg (27.0-33.4); MEAN CORPUSCULAR HGB CONC 34.6 g/dL (32.0-36.0); MEAN CORPUSCULAR VOLUME 88 fl (80-97); MONOCYTES % (AUTO) 5.7 % (3-13); PLATELET COUNT 180 10^3/uL (150-450); RED BLOOD COUNT 3.63 10^6/uL (3.72-5.28); RED CELL DISTRIBUTION WIDTH 14.5 % (11.5-14.0); SEGMENTED NEUTROPHILS % (AUTO) 62.9 % (42-78); TOTAL CELLS COUNTED % (AUTO) 100 %; WHITE BLOOD COUNT 7.6 10^3/uL (4.0-10.5)
[2018-01-25 14:07] LABS: ANION GAP 12 (5-19); BLOOD UREA NITROGEN 24 mg/dL (7-20); CALCIUM 9.9 mg/dL (8.4-10.2); CARBON DIOXIDE 28 mmol/L (22-30); CHLORIDE 103 mmol/L (98-107); GLUCOSE 119 mg/dL (75-110); POTASSIUM 4.2 mmol/L (3.6-5.0); SODIUM 143.1 mmol/L (137-145)
[2018-01-26 11:38] LABS: CREATININE URINE 76.4 mg/dL (Not Estab.); MICROALBUMIN URINE 5.9 ug/mL (Not Estab.)
== END ==
LOC: OD 12:52
PROVIDERS: ATTEND Internal Medicine Nephrology
DX: N17.9 Acute kidney failure, unspecified (principal); D64.9 Anemia, unspecified; E11.9 Type 2 diabetes mellitus without complications
CPT/HCPCS: 36415; 80048; 81001; 82043; 82570; 85025

== ENCOUNTER → 2018-04-25 | Outpatient (CLI) | payer MEDICARE, MEDICAID ==
[2018-04-25 13:28] LABS: ABSOLUTE EOSINOPHILS # (AUTO) 0.2 10^3/uL (0.0-0.6); ABSOLUTE LYMPHOCYTES (AUTO) 1.5 10^3/uL (0.5-4.7); ABSOLUTE MONOCYTES (AUTO) 0.4 10^3/uL (0.1-1.4); BASOPHILS % (AUTO) 0.8 % (0-2); EOSINOPHILS % (AUTO) 3.2 % (0-6); HEMATOCRIT 33.3 % (36.0-47.0); HEMOGLOBIN 11.5 g/dL (12.0-15.5); LYMPHOCYTES % (AUTO) 24.8 % (13-45); MEAN CORPUSCULAR HEMOGLOBIN 29.9 pg (27.0-33.4); MEAN CORPUSCULAR HGB CONC 34.6 g/dL (32.0-36.0); MEAN CORPUSCULAR VOLUME 86 fl (80-97); PLATELET COUNT 173 10^3/uL (150-450); RED BLOOD COUNT 3.85 10^6/uL (3.72-5.28); RED CELL DISTRIBUTION WIDTH 14.5 % (11.5-14.0); SEGMENTED NEUTROPHILS % (AUTO) 64.2 % (42-78); TOTAL CELLS COUNTED % (AUTO) 100 %; WHITE BLOOD COUNT 6.2 10^3/uL (4.0-10.5)
[2018-04-25 13:31] LABS: APPEARANCE,URINE SLIGHTLY-CLOUDY; BILIRUBIN,URINE NEGATIVE (NEGATIVE); COLOR,URINE YELLOW; GLUCOSE, URINE NEGATIVE (NEGATIVE); KETONES,URINE NEGATIVE (NEGATIVE); LEUKOCYTE ESTERASE,URINE NEGATIVE (NEGATIVE); NITRITE,URINE NEGATIVE (NEGATIVE); PROTEIN,URINE NEGATIVE (NEGATIVE); URINE SPECIFIC GRAVITY 1.015; UROBILINOGEN,URINE NEGATIVE mg/dL (<2.0)
[2018-04-25 13:45] LABS: ALBUMIN 4.1 g/dL (3.5-5.0); ANION GAP 9 (5-19); BLOOD UREA NITROGEN 25 mg/dL (7-20); CARBON DIOXIDE 29 mmol/L (22-30); CHLORIDE 103 mmol/L (98-107); GLUCOSE 156 mg/dL (75-110); PHOSPHORUS 3.9 mg/dL (2.5-4.5); POTASSIUM 4.4 mmol/L (3.6-5.0); SODIUM 140.7 mmol/L (137-145)
[2018-04-26 11:40] LABS: CREATININE URINE 78.2 mg/dL (Not Estab.); MICROALBUMIN URINE 4.1 ug/mL (Not Estab.)
== END ==
LOC: OD 12:28
PROVIDERS: ATTEND Internal Medicine Nephrology
DX: E11.22 Type 2 diabetes mellitus with diabetic chronic kidney disease (principal); N18.3 Chronic kidney disease, stage 3 (moderate); D64.9 Anemia, unspecified
CPT/HCPCS: 36415; 80048; 81001; 82040; 82043; 82306; 82570; 83970; 84100; 85025

== ENCOUNTER 2018-06-06 17:44 | Emergency (ER) | payer MEDICARE, MEDICAID ==
[2018-06-06 18:37] LABS: ABSOLUTE EOSINOPHILS # (AUTO) 0.1 10^3/uL (0.0-0.6); ABSOLUTE LYMPHOCYTES (AUTO) 0.6 10^3/uL (0.5-4.7); ABSOLUTE MONOCYTES (AUTO) 0.5 10^3/uL (0.1-1.4); ABSOLUTE NEUT (AUTO) 5.8 10^3/uL (1.7-8.2); BASOPHILS % (AUTO) 0.4 % (0-2); EOSINOPHILS % (AUTO) 0.8 % (0-6); HEMATOCRIT 29.8 % (36.0-47.0); HEMOGLOBIN 10.4 g/dL (12.0-15.5); LYMPHOCYTES % (AUTO) 8.4 % (13-45); MEAN CORPUSCULAR HEMOGLOBIN 30.1 pg (27.0-33.4); MEAN CORPUSCULAR HGB CONC 34.7 g/dL (32.0-36.0); MEAN CORPUSCULAR VOLUME 87 fl (80-97); MONOCYTES % (AUTO) 7.2 % (3-13); PLATELET COUNT 150 10^3/uL (150-450); RED BLOOD COUNT 3.44 10^6/uL (3.72-5.28); RED CELL DISTRIBUTION WIDTH 15.3 % (11.5-14.0); SEGMENTED NEUTROPHILS % (AUTO) 83.2 % (42-78); TOTAL CELLS COUNTED % (AUTO) 100 %; WHITE BLOOD COUNT 6.9 10^3/uL (4.0-10.5)
[2018-06-06 18:53] LABS: ALANINE AMINOTRANSFERASE 20 U/L (9-52); ALBUMIN 3.7 g/dL (3.5-5.0); ALKALINE PHOSPHATASE 111 U/L (38-126); ANION GAP 11 (5-19); ASPARTATE AMINO TRANSFERASE 15 U/L (14-36); BILIRUBIN,DIRECT 0.1 mg/dL (0.0-0.4); BILIRUBIN,TOTAL 0.7 mg/dL (0.2-1.3); BLOOD UREA NITROGEN 18 mg/dL (7-20); CALCIUM 9.3 mg/dL (8.4-10.2); CARBON DIOXIDE 26 mmol/L (22-30); CHLORIDE 102 mmol/L (98-107); GLUCOSE 145 mg/dL (75-110); SODIUM 139.4 mmol/L (137-145); TOTAL PROTEIN 6.9 g/dL (6.3-8.2)
--- NOTE | 2018-06-06 19:02 | ER Document Report ---
ED General - General Chief Complaint: Fever Stated Complaint: FEVER Time Seen by Provider: 06/06/18 18:12 Notes: Patient is a 72-year old female with a past medical history of a recent right hip replacement, who presents with concerns of fever at home up to 101.3 F. This was obtained by her family member. She has not taken anything to reduce the fever. The patient denies any associated symptoms with this fever other than having urinary frequency over the last several days. Nothing seems to improve or worsen her fever. She does not currently have any symptoms of any kind. She denies any history of similar symptoms in the past. She has contact her orthopedic surgeon who requested that she come to the emergency department for evaluation. She denies any chest pain, shortness of breath, nausea, vomiting, headache, or neck pain. Does not take any form of immune suppressant. TRAVEL OUTSIDE OF THE [place] IN LAST 30 DAYS: No - Related Data Allergies/Adverse Reactions: Sulfa (Sulfonamide Antibiotics) Allergy (Verified 06/06/18 17:46) Past Medical History - General Information source: Patient - Social History Smoking Status: Never Smoker Frequency of alcohol use: None Drug Abuse: None Lives with: Family Family History: Reviewed & Not Pertinent Patient has suicidal ideation: No Patient has homicidal ideation: No - Past Medical History Cardiac Medical History: Reports: Hx Hypercholesterolemia, Hx Hypertension Pulmonary Medical History: Reports: Hx Bronchitis Endocrine Medical History: Reports: Hx Diabetes Mellitus Type 2 Renal/ Medical History: Denies: Hx Peritoneal Dialysis GI Medical History: Reports: Hx Gastroesophageal Reflux Disease Musculoskeletal Medical History: Reports Hx Arthritis Psychiatric Medical History: Reports: Hx Depression Past Surgical History: Reports: Hx Abdominal Surgery - hernia repair x3 with mesh, Hx Gynecologic Surgery - prolapse repair, Hx Orthopedic Surgery - b/l TKR , right hip replacement Review of Systems - Review of Systems Notes: Constitutional: Positive for fever at home HENT: Negative for sore throat. Eyes: Negative for visual changes. Cardiovascular: Negative for chest pain. Respiratory: Negative for shortness of breath. Gastrointestinal: Negative for abdominal pain, vomiting or diarrhea. Genitourinary: Negative for dysuria. Positive for urinary frequency Musculoskeletal: Negative for back pain. Skin: Negative for rash. Neurological: Negative for headaches, weakness or numbness. 10 point ROS negative except as marked above and in HPI. Physical Exam - Vital signs Vitals: Temp Pulse Resp BP Pulse Ox 99.6 F 81 22 H 139/75 H 96 06/06/18 17:50 06/06/18 17:50 06/06/18 17:50 06/06/18 17:50 06/06/18 17:50 Notes: PHYSICAL EXAMINATION: GENERAL: Well-appearing, well-nourished and in no acute distress. HEAD: Atraumatic, normocephalic. EYES: Pupils equal round and reactive to light, extraocular movements intact, sclera anicteric, conjunctiva are normal. ENT: nares patent, oropharynx clear without exudates. Moist mucous membranes. NECK: Normal range of motion, supple without lymphadenopathy LUNGS: Breath sounds clear to auscultation bilaterally and equal. No wheezes rales or rhonchi. HEART: Regular rate and 3 out of 6 systolic ejection murmur ABDOMEN: Soft, nontender, normoactive bowel sounds. No guarding, no rebound. No masses appreciated. EXTREMITIES: Normal range of motion, no pitting or edema. No cyanosis. NEUROLOGICAL: No focal neurological deficits. Moves all extremities spontaneously and on command. PSYCH: Normal mood, normal affect. SKIN: Warm, Dry, normal turgor, well-healed incisional wound along the lateral aspect of the right hip with underlying hematoma but no evidence of associated infection Course - Re-evaluation Re-evalutation: 06/06/18 19:01 Patient presents with concerns of fever up to 101.3 F at home but no additional symptoms other than frequent urination. Patient has not taken any antipyretics at time of arrival her vitals are within normal limits. She denies any symptoms of any kind. Exam is notable for a well-healing incisional scar over the right hip with an underlying hematoma. No evidence of associated infection. The patient denies any cough or shortness of breath to suggest a pneumonia. Pulse ox within acceptable limits. No abdominal pain. No chest pain. Will await laboratories and reassess the patient. 06/06/18 19:52 Urinalysis shows findings consistent with a mild urinary tract infection although not pyelonephritis. She will be started on cephalexin. A culture has been sent. Chest x-ray clear. The remainder of her laboratories show anemia but are otherwise unremarkable. Patient remains very well in appearance, vitals within normal limits, continues to be afebrile. Appropriate for outpatient management. At this time will discharge with return precautions and follow-up recommendations. Verbal discharge instructions given a the bedside and opportunity for questions given. Medication warnings reviewed. Patient is in agreement with this plan and has verbalized understanding of return precautions and the need for primary care follow-up in the next 24-72 hours. - Vital Signs Vital signs: Temp Pulse Resp BP Pulse Ox 99.6 F 81 20 141/64 H 95 06/06/18 17:50 06/06/18 17:50 06/06/18 19:01 06/06/18 19:01 06/06/18 19:01 - Laboratory Result Diagrams: 06/06/18 18:20 06/06/18 18:20 Laboratory results interpreted by me: 06/06/18 06/06/18 06/06/18 18:20 18:20 19:22 RBC 3.44 L Hgb 10.4 L Hct 29.8 L RDW 15.3 H Seg Neutrophils % 83.2 H Lymphocytes % 8.4 L Glucose 145 H Ur Leukocyte Esterase SMALL H - Diagnostic Test Radiology reviewed: Image reviewed, Reports reviewed Radiology results interpreted by me: 06/06/18 19:53 Chest x-ray: No acute infiltrate or pneumothorax Discharge - Discharge Clinical Impression: Urinary tract infection Qualifiers: Urinary tract infection type: site unspecified Hematuria presence: without hematuria Qualified Code(s): N39.0 - Urinary tract infection, site not specified Fever Qualifiers: Fever type: unspecified Qualified Code(s): R50.9 - Fever, unspecified Condition: Good Disposition: HOME, SELF-CARE Additional Instructions: Your urine shows findings consistent with a urinary tract infection. Please take all the antibiotics as directed even if your symptoms have improved. Please follow-up with your primary care physician in the next several days. Return to emergency room if you develop fever >101F, persistent vomiting, become lethargic, have severe pain in your sides, or any other symptoms that are concerning to you. Prescriptions: Cephalexin Monohydrate [Keflex 500 mg Capsule] 500 mg PO Q6H 7 Days capsule Referrals: MEKA BOWER MD [Primary Care Provider] - Follow up tomorrow
[2018-06-06 19:42] LABS: APPEARANCE,URINE SLIGHTLY-CLOUDY; BILIRUBIN,URINE NEGATIVE (NEGATIVE); COLOR,URINE YELLOW; GLUCOSE, URINE NEGATIVE (NEGATIVE); KETONES,URINE NEGATIVE (NEGATIVE); LEUKOCYTE ESTERASE,URINE SMALL (NEGATIVE); NITRITE,URINE NEGATIVE (NEGATIVE); PROTEIN,URINE NEGATIVE (NEGATIVE); URINE SPECIFIC GRAVITY 1.012; UROBILINOGEN,URINE NEGATIVE mg/dL (<2.0)
--- NOTE | 2018-06-06 20:18 | RADIOLOGY REPORT (SQ) ---
EXAM DESCRIPTION: CHEST SINGLE VIEW COMPLETED DATE/TIME: 06/06/2018 7:11 pm REASON FOR STUDY: fever COMPARISON: 12/05/2017 EXAM PARAMETERS: NUMBER OF VIEWS: One view. TECHNIQUE: Single frontal radiographic view of the chest acquired. RADIATION DOSE: NA LIMITATIONS: None. FINDINGS: LUNGS AND PLEURA: No opacities, masses or pneumothorax. No pleural effusion. MEDIASTINUM AND HILAR STRUCTURES: No masses. Contour normal. HEART AND VASCULAR STRUCTURES: Heart normal in size. Normal vasculature. BONES: No acute findings. HARDWARE: None in the chest. OTHER: No other significant finding. IMPRESSION: NO ACUTE RADIOGRAPHIC FINDING IN THE CHEST. TECHNICAL DOCUMENTATION: JOB ID: [id number] [employer]- All Rights Reserved Reading location - IP/workstation name: [email or web address]
[2018-06-06] MEDS ORDERED: CEPHALEXIN 500 MG CAPSULE PO ONE (20:33)
[2018-06-06 21:20] VITALS: BP 130/64
== END 2018-06-06 21:29 | disposition home or self-care (01) ==
LOC: ER 17:44
DX: N39.0 Urinary tract infection, site not specified (principal); R50.9 Fever, unspecified; E78.00 Pure hypercholesterolemia, unspecified; I10 Essential (primary) hypertension; Z96.641 Presence of right artificial hip joint; Z88.2 Allergy status to sulfonamides
CPT/HCPCS: 99284; 36415; 87040; 87086; 83605; 85025; 87088; 80053; 81001; 87186; 71045; A9270

== ENCOUNTER → 2019-06-04 | Outpatient (CLI) | payer MEDICARE, MEDICAID ==
--- NOTE | 2019-06-04 13:39 | WOMENS IMAGING REPORT ---
EXAM DESCRIPTION: 3D SCREENING MAMMO BILAT COMPLETED DATE/TIME: 06/04/2019 12:52 pm REASON FOR STUDY: Z12.31 ENCOUNTER FOR SCREENING MAMMOGRAM FOR MALIGNANT NEOPLASM OF BREAST Z12.31 ENCNTR SCREEN MAMMOGRAM FOR MALIGNANT NEOPLASM OF [place] COMPARISON: 2012, 2016 EXAM PARAMETERS: Views: Standard craniocaudal and mediolateral oblique views of each breast recorded using digital acquisition and breast tomosynthesis. Read with the assistance of CAD. .[facility] - [employer] Version 9.2 LIMITATIONS: None. FINDINGS: No suspicious masses, suspicious calcifications or architectural distortion. No areas of c oncern. IMPRESSION: NEGATIVE MAMMOGRAM. BIRADS 1. BREAST DENSITY: a. The breasts are almost entirely fatty. BIRAD: ASSESSMENT: 1 NEGATIVE RECOMMENDATION: ROUTINE SCREENING COMMENT: The patient has been notified of the results by letter per MQSA requirements. Additional no tification policies are in place for contacting patient with suspicious or incomplete findings. Quality ID #[id number]: The [employer] recommends an annual screening mammogram for women aged 40 years or over. This facility utilizes a reminder system to ensure that all patients receive reminder letters, and/or direct phone calls for appointments. This includes reminders for routine scr eening mammograms, diagnostic mammograms, or other Breast Imaging Interventions when appropriate. Th is patient will be placed in the appropriate reminder system. TECHNICAL DOCUMENTATION: FINDING NUMBER: (1) ASSESSMENT: (1) JOB ID: [id number] [employer]- All Rights Reserved Reading location - IP/workstation name: [email or web address]
== END ==
LOC: WI 11:00
PROVIDERS: ATTEND Physician Assistant
DX: Z12.31 Encounter for screening mammogram for malignant neoplasm of breast (principal)
CPT/HCPCS: 77063; 77067

== ENCOUNTER → 2019-09-22 | Outpatient (CLI) | payer MEDICARE, MEDICAID ==
--- NOTE | 2019-09-22 18:41 | XCELERA REPORT ---
[address] [address] Transthoracic Echocardiogram Report Name: JENIFER JARA Age: 73 yrs Gender: Female : 1945 Patient Status: Outpatient Patient Location: [facility] Study Date: 09/22/2019 03:20 PM Height: 64 in Weight: 270 lb BSA: 2.2 m2 Procedure: A two-dimensional transthoracic echocardiogram with color flow and Doppler was performed. Study Quality: Fair. Reason For Study: MURMUR History: MURMUR. Ordering Physician: MARIANGEL DOHERTY Performed By: Eli Gomez Interpretation Summary The left ventricle is normal in size. There is mild to moderate concentric left ventricular hypertrophy. LV EF is 65% Left ventricular systolic function is normal. Doppler measurements suggest impaired left ventricular relaxation, which is associated with grade I/IV or mild diastolic dysfunction The left ventricular wall motion is normal. There is no thrombus. No ASD,VSD , or PFO seeen. The right ventricular cavity is small. The right ventricle is not well visualized secondary to technical limitations The right atrium is normal. The left atrium is borderline dilated. There is no evidence of mitral valve prolapse. There is no vegetation seen on the mitral valve. There is no mitral valve stenosis. There is no mitral regurgitation noted. There is no aortic valvular vegetation. There is no aortic valve stenosis There is no LVOT obstruction. No aortic regurgitation is present. There is no tricuspid stenosis. There is a trace amount of tricuspid regurgitation Right ventricular systolic pressure is normal. RVSP is 25 to 30 mm of Hg , with RA mean of 5 to 10. There is no pulmonic valvular stenosis. There is no pulmonic valvular regurgitation. The aortic root is normal size. The inferior vena cava appeared normal and decreased > 50% with respiration (RAP 5-10 mmHg) There is no pericardial effusion. MMode/2D Measurements & Calculations RVDd: 2.3 cm LVIDd: 4.9 cm FS: 34.4 % Ao root diam: 3.3 cm IVSd: 1.4 cm LVIDs: 3.2 cm EDV(Teich): 110.7 ml Ao root area: 8.5 cm2 LVPWd: 1.4 cm ESV(Teich): 40.5 ml EF(Teich): 63.4 % Doppler Measurements & Calculations MV E max hira: MV dec slope: Ao V2 max: LV V1 max P.7 cm/sec 434.2 cm/sec2 202.6 cm/sec 5.4 mmHg MV A max hira: MV dec time: 0.25 secAo max PG: LV V1 max: 124.7 cm/sec 16.4 mmHg 115.7 cm/sec MV E/A: 0.86 PA V2 max: TR max hira: 97.6 cm/sec 204.9 cm/sec PA max P.8 mmHg TR max P.1 mmHg Left Ventricle The left ventricle is normal in size. There is mild to moderate concentric left ventricular hypertrophy. LV EF is 65%. Left ventricular systolic function is normal. Doppler measurements suggest impaired left ventricular relaxation, which is associated with grade I/IV or mild diastolic dysfunction. The left ventricular wall motion is normal. There is no thrombus. No ASD,VSD , or PFO seeen. Right Ventricle The right ventricular cavity is small. The right ventricle is not well visualized secondary to technical limitations. Atria The right atrium is normal. The left atrium is borderline dilated. Mitral Valve There is no evidence of mitral valve prolapse. There is no vegetation seen on the mitral valve. There is no mitral valve stenosis. There is no mitral regurgitation noted. Aortic Valve There is no aortic valvular vegetation. There is no aortic valve stenosis. There is no LVOT obstruction. No aortic regurgitation is present. Tricuspid Valve There is no tricuspid stenosis. There is a trace amount of tricuspid regurgitation. Right ventricular systolic pressure is normal. RVSP is 25 to 30 mm of Hg , with RA mean of 5 to 10. Pulmonic Valve There is no pulmonic valvular stenosis. There is no pulmonic valvular regurgitation. Great Vessels The aortic root is normal size. The inferior vena cava appeared normal and decreased > 50% with respiration (RAP 5-10 mmHg). Effusions There is no pericardial effusion. : MARIANGEL DOHERTY Lakshmi
== END ==
LOC: SP 14:42
PROVIDERS: ATTEND Physician Assistant
DX: R01.1 Cardiac murmur, unspecified (principal)
CPT/HCPCS: 93306